=== PATIENT | female | born 1955 | race Caucasian/White ===

== ENCOUNTER → 2017-05-05 | Outpatient (CLI) | payer MEDICARE, MEDICAID ==
[~2017-05-05] MED LIST: ACET-1966 PO; ALE70 PO; BACOUD TP; CALC-707 PO; CALC500T42 PO; CETI-169 PO; CITA10SO7 PO; DOCU-194 PO; GUALA600 PO; HCTZ25 PO; LOPE-84 PO; LORA10TA2 PO; MENT118G; MOMR NS; MULTIVITAMIN PO; OLOOD OU; [UNRECOGNIZED DRUG - CODE] TP; [UNRECOGNIZED DRUG - OTHER] PO
--- NOTE | 2017-05-05 22:08 | RADIOLOGY IMAGING REPORT ---
FACILITY: [facility] - [place] PATIENT NAME: ADIEL MIRELES : [id number] MR: [id number] V: [id number] EXAM DATE: ORDERING PHYSICIAN: JYOTI AVERY TECHNOLOGIST: Steve Gilliland EXAMINATION:TWO-DIMENSIONAL ECHOCARDIOGRAPH REASON:EDEMA AND QUESTIONABLE HEART FAILURE 2D Measurements (normal values in centimeters) LV endLV endRV endVent.LV PostAorticLeftPercent DiastolicSystolicDiastolicSeptumWallRootAtriumShortening (3.5-5.7)(0.9-2.6)(0.6-1.1)(0.6-1.1)(2.0-3.7)(1.9-4.0)(25-35%) [id number]% STROKE VOLUME: 48 mL ESTIMATED EJECTION FRACTION:76% PARASTERNAL LONG AXIS: Overall left ventricular systolic function appears to be normal. Color examination of the valves reveals a trace of mitral and tricuspid insufficiency in this view. No wall motion abnormalities are noted. PARASTERNAL SHORT AXIS: Overall left ventricular systolic function appears to be normal. Aortic valve is trileaflet in configuration and appears to open normally. Color examination of the aortic valve was unremarkable. The pulmonic valve was not well seen but color examination of the pulmonic valve was unremarkable. APICAL FOUR AND TWO CHAMBER: Normal left ventricular systolic function. No wall motion abnormalities are noted. The right ventricle also appears to contract normally and the TAPSE is measured at 1.9. Aortic valve area and mitral valve area both measure within normal range at 2.5 and 2.8 cm2 respectively. The left atrial and right atrial volumes are measured within normal ranges at 15 and 8 mL/m2. Trace of tricuspid insufficiency is noted. The tricuspid regurgitation V-max is measured at 2.73 m/sec. Estimated right atrial pressure is 3 mmHg. SUBCOSTAL VIEW: Not well seen but no pericardial effusion was noted. No atrial septal or ventricular septal defects were appreciated. Doppler examination of the mitral valve in diastole does reveal a normal pattern with no reversal with Valsalva and medial and lateral E prime velocities are normal. OVERALL IMPRESSION: 1. Essentially normal 2 dimensional echocardiograph. Normal left ventricular ejection fraction of 76% with normal diastolic function. 2. Normal chamber sizes. 3. A trace of mitral and tricuspid insufficiency, probably physiologic in nature. The estimated right ventricular systolic pressure within normal range at 33 mmHg. Dictated by: Leeann Ramirez M.D. on 05/05/2017 at 13:49 Transcribed by: COY on 05/05/2017 at 14:04 Approved by: Leeann Ramirez M.D. on 05/05/2017 at 22:06 [facility]
== END ==
LOC: US 01:40
PROVIDERS: ATTEND Physician Assistant
DX: R60.0 Localized edema (principal)
CPT/HCPCS: 93306

== ENCOUNTER → 2017-10-05 | Outpatient (CLI) | payer MEDICARE, MEDICAID ==
--- NOTE | 2017-10-05 13:58 | RADIOLOGY IMAGING REPORT ---
FACILITY: [facility] - [place] PATIENT NAME: Lenora Corrales : 1955 MR: [id number] V: [id number] EXAM DATE: ORDERING PHYSICIAN: SHELLY OSMAN TECHNOLOGIST: Location: [facility] Patient: Lenora Corrales : 1955 Visit/Account:[id number] Date of Sevice: 10/05/2017 DEXA Scan Clinical history: Senile osteoporosis. Comparison: DEXA scan from 09/28/1715. LUMBAR SPINE: The bone mineral density (BMD) measured from L1-L4 correlates with a Z-score of 2.2 and a T-score of 1.9 which is Normal as defined by the World Health Organization. The corresponding risk of fracture in the lumbar spine is Not increased compared with a young adult reference population. This value ferreira s increased by 5.5 % since the prior study. More than 5% change is considered significant. HIP: Bone mineral density (BMD) measured in the LEFT total hip region correlates with a Z-score 0.9 and a T-score of 0.6 which is normal as defined by the World Health Organization. The corresponding risk of fracture in the hip is Not i ncreased compared to a young adult reference population. This value has decrease by 2.8 % since the p rior study. More than 5% change is considered significant. T score left femoral neck -1.3 Bone mineral density (BMD) measured in the Femoral Neck region measures 0.859 g/cm?. IMPRESSION: 1. Lumbar spine: Normal. There has been 5.5% increase in the bone mineral density since the previou s exam. 2. Left Total Hip: Normal. There has been 2.8% decrease in the bone mineral density since the previ ous exam. 3. Femoral Neck: Bone Mineral Density is 0.859 g/cm? The next DEXA scan of this patient should include the following sites: L1-L4 and the left hip. FRAX? WHO Fracture Risk Assessment Tool link: <http://www.shef.ac.uk/FRAX/tool.jsp?locationValue=9> PLEASE NOTE: 1) The World Health Organization defines low BMD as follows: T-score Normal > -1 Osteopenia < -1 and > -2.5 Osteoporosis < -2.5 without fractures Established osteoporosis < -2.5 with fractures 2) In general, you may wish to consider: Diagnosis Treatment Follow-up DEXA Normal BMD Prevention 2-3 years Osteopenia Prevention/therapy 1-2 years Osteoporosis Therapy Yearly 3) Fracture risk estimated from the T-score is more accurate for vertebral fractures (often spontane ous) than for hip fractures. Report Dictated By: Barbi Smith MD at 10/05/2017 1:52 PM Report E-Signed By: Barbi Smith MD at 10/05/2017 1:54 PM WSN:[email or web address]
== END ==
LOC: RAD 00:56
PROVIDERS: ATTEND Nurse Practitioner Family
DX: M81.0 Age-related osteoporosis without current pathological fracture (principal)
CPT/HCPCS: 77080

== ENCOUNTER → 2017-12-27 | Outpatient (CLI) | payer MEDICARE, MEDICAID ==
[~2017-12-27] MED LIST changes: -DOCU-194 PO; +DOCU100C56 PO
--- NOTE | 2017-12-28 11:14 | RADIOLOGY IMAGING REPORT ---
FACILITY: [facility] PATIENT NAME: ADIEL MIRELES : [id number] MR: [id number] V: [id number] EXAM DATE: [id number] ORDERING PHYSICIAN: SHELLY OSMAN TECHNOLOGIST: Alla Villegas PROCEDURE:BILATERAL DIGITAL SCREENING MAMMOGRAM WITH CAD ASSISTED INTERPRETATION COMPARISON:Prior mammograms 12/21/16, 12/21/15, 12/17/14, 11/20/13, 11/05/12, 11/02/11. INDICATIONS:screening FINDINGS: Small amount of fibroglandular tissue is seen throughout the breasts. The parenchymal pattern has remained stable allowing for difference in mammographic technique & patient positioning. There is no evidence of malignant appearing mass, malignant appearing calcifications or other secondary sign of malignancy in either breast. DIAGNOSTIC CATEGORY 1--NEGATIVE. RECOMMENDATIONS: ROUTINE MAMMOGRAM AND CLINICAL EVALUATION. IMPRESSION: BIRADS 1: Negative. No significant abnormality is seen. Dictated by: Barbi Smith M.D. on 12/27/2017 at 16:16 Transcribed by: OLIVE on 12/28/2017 at 8:01 Approved by: Barbi Smith M.D. on 12/28/2017 at 11:13 [facility]
== END ==
LOC: MAMO 01:48
PROVIDERS: ATTEND Nurse Practitioner Family
DX: Z12.31 Encounter for screening mammogram for malignant neoplasm of breast (principal)
CPT/HCPCS: 77067

== ENCOUNTER 2018-10-25 09:40 | Outpatient (RCR) | payer MEDICARE, MEDICAID ==
[~2018-10-25] VITALS: Ht 153.7 cm; Wt 105.2 kg
[~2018-10-25 09:40] MED LIST changes: +HYDR30CR10 TP
--- NOTE | 2018-10-25 14:51 | Medical Nutrition Therapy ---
Nutrition Anthropometrics Height (Inches): 60.5 (standing scale) Weight (Pounds): 232 BMI: 44.6 Basil Nutrition Score: Basil Nutrition Risk Score: Dietary Referral Nutrition Risk Factors: Nutrition Risk Comment: Physical Findings Physical Appearance: Obese BMI 30-39 Skin Appearance Skin Appearance: Edema Edema Location Modifier: Edema Location: Type of Edema: Degree of Edema: Gastrointestinal Symptoms GI Symtoms: Tube Present: Bowel Sounds: Recent Bowel Pattern: Stool Characteristics: Nutrition/Food History Breakfast: cereal, 1c 2% milk, 1 sl toast/butter Lunch: sandwhich, yogurt Dinner: meat, starch, starchy veg or non starchy veg Snacks: occasional canned fruit Nutritional Education Nutrition Education Topic: Weight Loss Diet Learning Barriers: Cognitive Learning Readiness: Interested Teaching Methods: Discussion, Handout, Demonstration Response to Teaching: Verbalize understanding, Reinforcement needed Teaching Recipient: Patient Nutrition Counseling: [facility] pt and staff attended session. Pt states she has been trying to lose weight and needed more help. Reviewed typical day. Reviewed plate method. Encouraged pt to increase non-starchy veg, changed to light yogurt, drink only calorie free beverages. Pt and RD developed 1 week menu of [id number] kcal to assist with wt loss goal of 1/2- 1#/week. Pt will f/t 2 weeks, Nov 09 at 3:00PM. Nutrition Monitoring & Eval RD Patient Assessment Time: [address] Assessment Type: RD Education Nutritional Comment: Provided 60 minutes MNT for wt loss. Copies To Copies to: SHELLY OSMAN ; ABDOUL ROMERO Oct 25, 2018 14:51
[2018-11-14] MEDS ORDERED: MONT10TA4 PO (16:40)
[2018-11-14] MEDS ORDERED: ACET-2043 PO (16:40)
[2018-11-14] MEDS ORDERED: BETA15CR2 TP (16:40)
[2018-11-14] MEDS ORDERED: TALC71PO2 TP (16:40)
[2018-11-14] MEDS ORDERED: MELO-207 PO (16:40)
[2018-11-14] MEDS ORDERED: [UNRECOGNIZED DRUG - CODE] PO (16:40)
[2018-11-14] MEDS ORDERED: CALC-743 PO (16:40)
[2018-11-14] MEDS ORDERED: NYST15PO4 TP (16:40)
[2018-11-14] MEDS ORDERED: GEMF600T96 PO (16:40)
[2018-11-14] MEDS ORDERED: CHOL10005 PO (16:40)
[2018-11-14] MEDS ORDERED: FLUT16SP19 NS (16:40)
[2018-11-14] MEDS ORDERED: CLOT15CR63 TP (16:40)
== END 2018-11-29 ==
LOC: DIET 09:40
PROVIDERS: ATTEND Nurse Practitioner Family
DX: R63.4 Abnormal weight loss (principal); Z68.42 Body mass index [BMI] 45.0-49.9, adult; Z71.3 Dietary counseling and surveillance
CPT/HCPCS: 97802